=== PATIENT | female | born 1970 | race Caucasian/White ===

== ENCOUNTER → 2016-05-05 | Outpatient (CLI) | payer BC ==
[~2016-05-05] MED LIST: LIDODERM 5% P1 PATCH TD; NAPROXEN500 MG PO; TRAMADOL HCL50 MG PO
== END | disposition home or self-care (01) ==
LOC: RES 03-27 10:00
DX: J45.21 Mild intermittent asthma with (acute) exacerbation (principal); Z87.891 Personal history of nicotine dependence
CPT/HCPCS: 94060; 94726; 94729